=== PATIENT | male | born 1970 | race Caucasian/White ===

== ENCOUNTER 2021-03-15 17:57 | Observation (INO) | payer SELFPAY ==
--- NOTE | ~2021-03-15 | CT_ITS ---
EXAMINATION: CT soft tissue neck w con DATE: 03/15/2021 20:06 INDICATION: Throat swelling. Evaluate for peritonsillar abscess. TECHNIQUE: Computed tomography (CT) of the neck was performed with 75 mL Omnipaque-350 intravenous co ntrast. The dose-length product was 575.45 mGy-cm. Automated exposure control and iterative reconstruction technique were employed. COMPARISON: None FINDINGS: There is emphysema in the lung apices. No intracranial abnormality is identified. Mild short tid atherosclerosis. Mild cervical lymphadenopathy bilaterally, likely reactive. There is asymmetrica lly enlarged left palatine tonsil with heterogeneous enhancement. There is a focal 3 mm hypodensity, suspicious for early abscess. Mild effacement of the left lateral oropharynx. There is irregularity o f the oropharynx with air-filled dilation and irregularity of the right piriform sinus without discre te mass. Larynx and false/true vocal cords are unremarkable. Correlate for prior surgical history. Mi ld thoracic esophageal wall thickening, possibly due to underdistention or esophagitis. IMPRESSION: 1. Asymmetrically enlarged left palatine tonsil with possible focal early abscess measuring 3 mm. Mil d effacement of the left lateral oropharynx. 2: Bilateral cervical lymph nodes, likely reactive. Reviewed, dictated and finalized at location A. IMPRESSION: 1. Asymmetrically enlarged left palatine tonsil with possible focal early absce ss measuring 3 mm. Mild effacement of the left lateral oropharynx. 2: Bilateral cervical lymph nodes, likely reactive.
[2021-03-15 18:00] VITALS: BP 159/88; PULSE 105; RESP 16; TEMP 36.5; O2SAT 97
--- NOTE | 2021-03-15 18:26 | ED.GENADULT ---
HPI - General Adult General Chief complaint: Dental/Oral Stated complaint: DIFF SWALLOWING Time Seen by Provider: 03/15/21 18:20 Source: patient Mode of arrival: ambulatory Limitations: no limitations History of Present Illness HPI narrative: Patient is a 50-year-old male complaining of sore throat and difficulty swallowing x3 days. Patient states that his was just diagnosed with strep throat. Patient also states that the left side of his neck feels swollen. Patient denies any chest pain, shortness of breath, cough, fever or chills. Related Data Home Medications Medication Instructions Recorded Confirmed No Home Medications 03/15/21 03/15/21 Allergies Allergy/AdvReac Type Severity Reaction Status Date / Time No Known Allergies Allergy Verified 03/15/21 18:13 Review of Systems Review of Systems: All systems reviewed & are unremarkable except as noted in HPI and below Constitutional: Constitutional: Denies body ache(s), Denies chills, Denies excessive sweating, Denies fatigue, Denies fever(s), Denies headache(s), Denies lethargy, Denies malaise, Denies weakness and Denies weight loss Eyes: Eyes: Denies blurry vision, Denies change in vision and Denies loss of vision ENT: Denies dizziness, Denies ear discharge, Denies headache(s), Denies lip swelling, Denies epistaxis, Denies nasal congestion, Denies neck pain and Denies tongue swelling Cardiovascular: Cardiovascular: Denies chest pain, Denies chest pain at rest, Denies chest pain with activity, Denies diaphoresis, Denies rapid heart rate, Denies edema, Denies irregular heart rhythm, Denies lightheadedness, Denies palpitations, Denies dyspnea and Denies dyspnea on exertion Respiratory: Respiratory: Denies chest congestion, Denies cough, Denies hemoptysis, Denies dyspnea and Denies dyspnea on exertion Gastrointestinal: Gastrointestinal: Denies abdominal pain, Denies melena, Denies hematochezia, Denies diarrhea, Denies nausea, Denies vomiting and Denies hematemesis Musculoskeletal: Musculoskeletal: Denies abnormal gait, Denies deformity, Denies joint swelling, Denies limited range of motion, Denies neck pain and Denies numbness Neurologic: Denies Abnormal speech present, Denies abnormal gait, Denies confusion, Denies dizziness, Denies headache(s), Denies focal weakness, Denies loss of vision, Denies numbness, Denies Other visual disturbances, Denies Sensory deficit (Neuro) and Denies weakness Psychiatric: Psychiatric: Denies confusion, Denies depression, Denies auditory hallucinations, Denies homicidal ideation and Denies suicidal ideation Endocrine: Endocrine: Denies cold intolerance, Denies excessive sweating, Denies fatigue, Denies heat intolerance and Denies palpitations Hematologic/Lymphatic: Hematologic/Lymphatic: Denies easy bleeding and Denies easy bruising Allergic/Immunologic: Allergic/Immunologic: Denies lip swelling, Denies throat swelling and Denies tongue swelling PMFSH Comments Past medical history: None Family history: Unknown Social history: Positive for smoker no EtOH or drug use Exam Const: General: cooperative, healthy appearing, comfortable, no acute distress, well developed, alert and awake; No confusion Orientation/consciousness: oriented to person, oriented to place, oriented to time, patient oriented x3 and No confusion Limitations: no limitations HENMT: Head: normal to inspection, normocephalic and atraumatic Ears: hearing grossly normal bilaterally, TM normal on the right and TM normal on the left General nose exam: Normal external nose present, Normal nares present and No nasal discharge present Face and sinus: normal facial exam Mouth: Yes Normal oral and palatal mucosa present, Yes lip normal and Yes tongue normal Throat: posterior oropharynx normal, tonsils normal and uvula midline Other: Erythematous swollen posterior oropharyngeal area, lymphadenopathy bilaterally Eyes: General: appearance normal, both eyes and all related st
[2021-03-15 18:46] LABS: Basophils Absolute Auto 0.1 K/mm3 (0.0-0.1); Basophils Percent Auto 0.3 % (0.2-1.2); Eosinophils Absolute Auto 0.1 K/mm3 (0-0.3); Eosinophils Percent Auto 0.4 % (0-4.4); Hematocrit 48.3 % (42.0-52.0); Hemoglobin 16.6 g/dL (14.0-18.0); Immature Granulocyte Percent A 0.5 % (0-0.5); Lymphocytes Absolute Auto 1.95 K/mm3 (0.9-3.2); Lymphocytes Percent Auto 9.5 % (18.3-44.2); Mean Corpuscular HGB Conc 34.4 g/dl (32-36); Mean Corpuscular Hemoglobin 34.6 pg (26-34); Mean Corpuscular Volume 100.6 fl (80-100); Mean Platelet Volume 10.6 fl (7.4-10.4); Monocytes Absolute Auto 1.4 K/mm3 (0.1-0.6); Monocytes Percent Auto 6.6 % (2.6-8.5); Neutrophils Percent Auto 82.7 % (45.5-73.1); Platelet Count Result 209 k/mm3 (150-375); Red Cell Distribution Width 13.1 % (11.5-14.5); White Blood Count 20.6 K/mm3 (4.5-10.0)
--- NOTE | 2021-03-15 18:53 | PC.NURSE ---
Gagan Wren called regarding chemistry still not being received.
[2021-03-15 19:05] LABS: Anion Gap 12 mmol/L (8-16); Blood Urea Nitrogen 11 mg/dL (9-20); Calcium 9.7 mg/dL (8.4-10.2); Carbon Dioxide 24 mmol/L (22-30); Chloride 103 mmol/L (98-107); Estimated CRCL calculation 87 ml/min; Estimated Glomerular Filt Rate > 60; Glucose 121 mg/dL (65-110); Potassium 3.5 mmol/L (3.4-5.0); Sodium 139 mmol/L (137-145)
[2021-03-15 19:30] VITALS: BP 154/86; PULSE 93; RESP 16; O2SAT 98
[2021-03-15 20:11] VITALS: BP 150/98; PULSE 94; RESP 18; O2SAT 95
[2021-03-15 22:15] VITALS: BP 143/91; PULSE 100; RESP 18; O2SAT 96
[2021-03-15] MEDS: AMPICILLIN SULB 3 GM/NS 100 ML 3 GM/100 ML VIAL IVPB (22:18)
[2021-03-15] MEDS: LACTATED RINGERS 1,000 ML 125 ML IV CONT (22:18)
[2021-03-15 23:00] VITALS: BP 126/86; PULSE 88; RESP 14; TEMP 36.7; O2SAT 96
--- NOTE | 2021-03-15 23:02 | PM.IMHP ---
H&P: HPI History of Present Illness Date/Time: 03/15/21 23:02 Chief Complaint: Throat pain Narrative: This is a 50-year-old male with past medical history significant for tobacco dependence, alcohol dependence, no other significant past medical history presents to the emergency room with complaints of throat pain for the last 2 days fevers rigors and chills night sweats states that his had the same complaints at home. Today he was at work and it was getting increasingly worse for him to swallow his own secretions and decided to come to the emergency room. Patient states that this has been going on for the last today that he has been only drinking liquids and has not been able to eat any solid food but denies any nausea vomiting diarrhea or abdominal pain. Preliminary workup of has been significant for asymmetrically enlarged left palatine tonsil with possible focal early abscess measuring 3 mm, mild effacement of the left lateral oropharynx,bilateral cervical lymph nodes, likely reactive. CBC was significant for WBC count of 20,000. Patient has been admitted for further evaluation and treatment. Review of Systems Review of Systems: Pain swallowing throat pain chills night sweats Constitutional: Constitutional: Reports chills, Reports fever(s), Denies malaise, Reports night sweats and Denies weakness Eyes: Eyes: Denies change in vision, Denies diplopia and Denies itchy eyes ENT: Reports dysphagia, Denies hoarseness, Denies nasal congestion, Denies nasal discharge, Denies nasal obstruction, Reports odynophagia and Denies tongue swelling Cardiovascular: Cardiovascular: Denies irregular heart rhythm, Denies claudication, Denies leg edema, Denies lightheadedness, Denies radiating jaw, neck or arm pain, Denies palpitations, Denies dyspnea, Denies dyspnea on exertion and Denies orthopnea Respiratory: Respiratory: Denies cough, Denies excessive phlegm production, Denies pain with cough, Denies dyspnea and Denies wheezing Gastrointestinal: Gastrointestinal: Denies abdominal pain, Denies dyspepsia, Denies heartburn, Denies diarrhea, Denies nausea and Denies vomiting Genitourinary: Genitourinary: Denies dysuria and Denies urinary frequency Musculoskeletal: Musculoskeletal: Denies arthralgias and Denies joint swelling Integumentary/Breasts: Skin/Breast: Denies swelling, Denies rash and Denies sores Neurologic: Denies focal weakness and Denies Sensory deficit (Neuro) Psychiatric: Psychiatric: Reports as per HPI Endocrine: Endocrine: Reports as per HPI Hematologic/Lymphatic: Hematologic/Lymphatic: Reports as per HPI Allergic/Immunologic: Allergic/Immunologic: Reports as per HPI [facility] Social History Social History Smoking packs per day: 1 Smoking cigarettes per day: 20.0 Years smoked: 30 Smoking pack-years: 30.00 Smoking status: Current every day smoker Tobacco type: cigarettes Second hand tobacco smoke exposure: Yes Alcohol intake: current Drinks per week: 14 Substance use: never Spiritual care concerns: No Meds Home Medications and Allergies Home Medications Medication Instructions Recorded Confirmed Type No Home Medications 03/15/21 03/15/21 History Allergies Allergy/AdvReac Type Severity Reaction Status Date / Time No Known Allergies Allergy Verified 03/15/21 18:13 Vital Signs Vital Signs - 24 hr 03/15/21 18:00 03/15/21 19:30 03/15/21 20:11 Temperature 97.7 F Pulse Rate 105 H 93 94 Respiratory Rate 16 16 18 Blood Pressure 159/88 H 154/86 H 150/98 H Pulse Oximetry 97 98 95 03/15/21 22:15 Temperature Pulse Rate 100 Respiratory Rate 18 Blood Pressure 143/91 H Pulse Oximetry 96 Exam Narrative: Laying in gurney Const: General: cooperative, comfortable, no acute distress, well developed, alert, awake and other (Well-appearing) Nutritional Appearance: average body habitus Orientation/consciousness: patient oriented x3 HENMT: Head: normal to inspection, nor
[2021-03-15 23:40] VITALS: BP 142/90; PULSE 101; RESP 20; TEMP 36.2; O2SAT 97; BMI 25.3
--- NOTE | 2021-03-16 00:32 | ADMGEN ---
This patient, Dusty Centeno, was admitted to [facility] Surg Room 330-02. Patient/family oriented to hospital policies and general routines including ID bracelet, bed and alarms, visiting hours, pain management, procedures, bathroom and other care routines, personal items, smoking policy, room service/diet, and visiting hours. Information on how to activate the Rapid Response Team has been discussed. Patient/Family are encouraged to report perceived risks to care and to ask questions if they do not understand what they are told or what they should do.
[2021-03-16] MEDS: LACTATED RINGERS 1,000 ML 125 ML IV CONT (05:32)
[2021-03-16] MEDS: AMPICILLIN SULB 3 GM/NS 100 ML 3 GM/100 ML VIAL IVPB ×3 (05:32→18:01)
[2021-03-16 05:42] VITALS: BP 130/81; PULSE 98; RESP 18; TEMP 36.4; O2SAT 97
[2021-03-16 10:18] LABS: Basophils Percent Auto 0.2 % (0.2-1.2); Eosinophils Percent Auto 0.2 % (0-4.4); Hematocrit 49.6 % (42.0-52.0); Hemoglobin 16.5 g/dL (14.0-18.0); Immature Granulocyte Absolute 0.12 K/mm3 (0.00-0.031); Immature Granulocyte Percent A 0.6 % (0-0.5); Lymphocytes Absolute Auto 2.57 K/mm3 (0.9-3.2); Lymphocytes Percent Auto 13.6 % (18.3-44.2); Mean Corpuscular HGB Conc 33.3 g/dl (32-36); Mean Corpuscular Hemoglobin 34.2 pg (26-34); Mean Corpuscular Volume 102.9 fl (80-100); Mean Platelet Volume 10.8 fl (7.4-10.4); Monocytes Absolute Auto 1.2 K/mm3 (0.1-0.6); Monocytes Percent Auto 6.6 % (2.6-8.5); Neutrophils Absolute Auto 14.9 K/mm3 (1.3-6.7); Neutrophils Percent Auto 78.8 % (45.5-73.1); Platelet Count Result 207 k/mm3 (150-375); Red Blood Count 4.82 M/mm3 (4.6-6.20); Red Cell Distribution Width 13.1 % (11.5-14.5); White Blood Count 18.9 K/mm3 (4.5-10.0)
[2021-03-16 10:56] LABS: Anion Gap 13 mmol/L (8-16); Blood Urea Nitrogen 14 mg/dL (9-20); Calcium 9.4 mg/dL (8.4-10.2); Carbon Dioxide 22 mmol/L (22-30); Chloride 105 mmol/L (98-107); Estimated CRCL calculation 97 ml/min; Estimated Glomerular Filt Rate > 60; Glucose 89 mg/dL (65-110); Potassium 4.1 mmol/L (3.4-5.0); Sodium 140 mmol/L (137-145)
--- NOTE | 2021-03-16 13:18 | PM.IMPN ---
Progress Note: A&P Assessment and Plan (1) Peritonsillar abscess: Code(s): J36 - Peritonsillar abscess Status: Acute Assessment and Plan: Soft tissue neck CT shows asymmetrically enlarged left palatine tonsil with possible focal early abscess measuring 3 mm with surrounding lymphadenopathy. Appreciate ENT consultation IV dexamethasone x3 doses IV Unasyn Planning for I&D this evening per ENT Supportive care. Analgesics available as needed Continue IV fluids Clear liquid diet as tolerated. He is not able to tolerate liquids at this time. Marked leukocytosis mildly improving (2) Tobacco dependence: Code(s): F17.200 - Nicotine dependence, unspecified, uncomplicated Status: Acute Assessment and Plan: He smokes approximately 1 pack day Continue to reinforce tobacco cessation Subjective Date/time seen: 03/16/21 13:18 Interval history: Date of service: 03/16/2021 Dusty Centeno is a 50-year-old male with a history of tobacco abuse who is seen in follow-up for peritonsillar abscess. He feels miserable today. He complains of pain going from his left ear down to his neck and over to his chin. He had severe odynophagia when attempting to swallow liquids and he cannot manage his secretions. He has been having to spit out secretions for the past 2 days. He reports muffled speech. He denies nausea, vomiting, fever, or chills. He does endorse sweats. He feels lightheaded upon standing. He has a throbbing diffuse headache. Denies shortness breath, cough, or chest pain. No abdominal pain. No urinary symptoms. Review of Systems Review of Systems: All systems reviewed & are unremarkable except as noted in HPI and below Exam Narrative: Mr. Centeno is a well-nourished, well-appearing 50-year-old male who is lying supine in bed. He appears to be uncomfortable but is in NARD. Neuro: awake, alert and oriented x4, speech muffled, no focal neuro deficits noted HEENMT: normocephalic, atraumatic, EOMI, sclerae anicteric, moist oral mucosa, tongue midline Neck: Left-sided cervical and submandibular lymphadenopathy Respiratory: clear to auscultation bilaterally, nonlabored breathing Cardio: regular rate, regular rhythm with S1-S2 Abdomen: nondistended, normoactive bowel sounds, soft, nontender to palpation Extremities: no edema, erythema, or tenderness to palpation, DP pulses 2+ bilaterally Skin: no rashes or lesions, warm and dry Psych: appropriate mood and affect, judgment and insight intact Objective Data Vital Signs Vital Signs: Vital Signs - 24 hr 03/15/21 18:00 03/15/21 19:30 03/15/21 20:11 Temperature 97.7 F Pulse Rate 105 H 93 94 Respiratory Rate 16 16 18 Blood Pressure 159/88 H 154/86 H 150/98 H Pulse Oximetry 97 98 95 03/15/21 22:15 03/15/21 23:00 03/15/21 23:40 Temperature 98.0 F 97.1 F L Pulse Rate 100 88 101 H Respiratory Rate 18 14 20 Blood Pressure 143/91 H 126/86 142/90 H Pulse Oximetry 96 96 97 03/16/21 05:42 Temperature 97.6 F Pulse Rate 98 Respiratory Rate 18 Blood Pressure 130/81 Pulse Oximetry 97 Intake/Output Intake/Output: Intake & Output 03/13/21 03/14/21 03/15/21 03/16/21 23:59 23:59 23:59 23:59 Intake Total 100 1200 Balance 100 1200 Meds/Results Medications: Active Medications Generic Name Dose Route Start Last Admin Trade Name Freq PRN Reason Stop Dose Admin Dexamethasone Sodium Phosphate 8 mg 03/16/21 10:00 03/16/21 11:43 Dexamethasone Sod Phos Inj 10 Mg/Ml 1 Ml Vial IV PUSH 03/17/21 02:01 8 mg Q8H AMBER Administration Enoxaparin Sodium 40 mg 03/17/21 09:00 Enoxaparin 40 Mg/0.4 Ml Syringe SUB-Q DAILY AMBER Lactated Ringer's 1,000 mls @ 75 mls/hr 03/15/21 22:10 03/16/21 12:29 Lr - Lactated Ringers Iv IV CONT 75 mls/hr .[id number] AMBER Infusion Ampicillin Sodium/Sulbactam Sodium 3 gm in 100 mls @ 200 mls/hr 03/16/21 05:00 03/16/21 12:29 Unasyn 3 Gm/Ns 100 Ml IVPB
[2021-03-16 14:00] VITALS: BP 133/77; PULSE 91; RESP 16; TEMP 36.6; O2SAT 98
--- NOTE | 2021-03-16 17:20 | WPDCN ---
Assessment and Plan Assessment and plan (1) Peritonsillar abscess: Code(s): J36 - Peritonsillar abscess Status: Acute Assessment and Plan: Recommend completing the 3 doses of 8mg of decadron. Continue iv antibiotics while inpatient. Ok for diet. Please trend wbc daily. If the patient continues to improve and can tolerate a diet would recommend discharge on 10 days of an oral form of his iv antibiotic. 875/125 bid of augmentin or 300mg tid of clindamycin. 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 Reports feeling vastly improved in the past 3 hours. Able to speak and swallow. Trismus resolved. ENT consulted for further evaluation and treatment. Review of Systems ENT: Reports system reviewed and no additional complaints, except as documented, Reports neck pain and Reports throat swelling PMFSH Social History Social History Smoking packs per day: 1 Smoking cigarettes per day: 20.0 Years smoked: 30 Smoking pack-years: 30.00 Smoking status: Current every day smoker Tobacco type: cigarettes Second hand tobacco smoke exposure: Yes Alcohol intake: current Drinks per week: 14 Substance use: never Spiritual care concerns: No Meds Home Medications and Allergies Home Medications Medication Instructions Recorded Confirmed Type No Home Medications 03/15/21 03/15/21 History Allergies Allergy/AdvReac Type Severity Reaction Status Date / Time No Known Allergies Allergy Verified 03/15/21 18:13 Vital Signs Vital Signs - 24 hr 03/15/21 18:00 03/15/21 19:30 03/15/21 20:11 Temperature 36.5 C Pulse Rate 105 H 93 94 Respiratory Rate 16 16 18 Blood Pressure 159/88 H 154/86 H 150/98 H Pulse Oximetry 97 98 95 03/15/21 22:15 03/15/21 23:00 03/15/21 23:40 Temperature 36.7 C 36.2 C L Pulse Rate 100 88 101 H Respiratory Rate 18 14 20 Blood Pressure 143/91 H 126/86 142/90 H Pulse Oximetry 96 96 97 03/16/21 05:42 Temperature 36.4 C Pulse Rate 98 Respiratory Rate 18 Blood Pressure 130/81 Pulse Oximetry 97 Exam HENMT: Other: Trismus largely resolved. Mild left sided peritonsillar/soft palate edema. Exudates bilaterally. Results Labs CBC & Chem 7: 03/16/21 09:31 03/16/21 09:31 Labs: Short CBC 03/15/21 03/16/21 Range/Units 18:32 09:31 WBC 20.6 H 18.9 H (4.5-10.0) K/mm3 Hgb 16.6 16.5 (14.0-18.0) g/dL Hct 48.3 49.6 (42.0-52.0) % Plt Count 209 207 (150-375) k/mm3 BMP 03/15/21 03/16/21 18:32 09:31 Sodium 139 140 Potassium 3.5 4.1 Chloride 103 105 Carbon Dioxide 24 22 BUN 11 14 Creatinine 0.90 0.80 Glucose 121 H 89 Calcium 9.7 9.4
[2021-03-16 21:26] VITALS: O2SAT 98
[2021-03-16 21:39] VITALS: BP 131/70; PULSE 76; RESP 18; TEMP 36.6; O2SAT 98
[2021-03-17] MEDS: AMPICILLIN SULB 3 GM/NS 100 ML 3 GM/100 ML VIAL IVPB ×3 (01:00→11:17)
[2021-03-17 05:47] VITALS: BP 141/94; PULSE 74; RESP 18; TEMP 36.2; O2SAT 97
[2021-03-17 06:17] LABS: Basophils Percent Auto 0.1 % (0.2-1.2); Eosinophils Percent Auto 0.1 % (0-4.4); Hematocrit 47.3 % (42.0-52.0); Immature Granulocyte Absolute 0.12 K/mm3 (0.00-0.031); Immature Granulocyte Percent A 0.7 % (0-0.5); Lymphocytes Absolute Auto 1.13 K/mm3 (0.9-3.2); Lymphocytes Percent Auto 6.4 % (18.3-44.2); Mean Corpuscular HGB Conc 33.8 g/dl (32-36); Mean Corpuscular Hemoglobin 34.5 pg (26-34); Mean Corpuscular Volume 101.9 fl (80-100); Mean Platelet Volume 10.9 fl (7.4-10.4); Monocytes Absolute Auto 0.4 K/mm3 (0.1-0.6); Monocytes Percent Auto 2.4 % (2.6-8.5); Neutrophils Percent Auto 90.3 % (45.5-73.1); Platelet Count Result 194 k/mm3 (150-375); Red Blood Count 4.64 M/mm3 (4.6-6.20); Red Cell Distribution Width 12.7 % (11.5-14.5); White Blood Count 17.8 K/mm3 (4.5-10.0)
[2021-03-17 06:30] LABS: Anion Gap 9 mmol/L (8-16); Blood Urea Nitrogen 13 mg/dL (9-20); CRP 4.6 mg/dL (<1.0); Calcium 9.3 mg/dL (8.4-10.2); Carbon Dioxide 23 mmol/L (22-30); Chloride 104 mmol/L (98-107); Estimated CRCL calculation 110 ml/min; Estimated Glomerular Filt Rate > 60; Glucose 129 mg/dL (65-110); Potassium 4.4 mmol/L (3.4-5.0); Sodium 136 mmol/L (137-145)
[2021-03-17] MEDS: ENOXAPARIN 40 MG/0.4 ML SYRINGE SUB-Q (08:27)
[2021-03-17] MEDS: LACTATED RINGERS 1,000 ML 75 ML IV CONT (08:32)
--- NOTE | 2021-03-17 13:50 | PM.DS ---
DS: Admitting Diagnosis Discharge Date 03/17/2020 Admitting Diagnosis Peritonsillar abscess DS: Discharge Diagnosis Discharge Diagnosis (1) Peritonsillar abscess: Code(s): J36 - Peritonsillar abscess Status: Acute Assessment and Plan: Soft tissue neck CT showed asymmetrically enlarged left palatine tonsil with possible focal early abscess measuring 3 mm with surrounding lymphadenopathy. He was seen in consultation by ENT Received IV dexamethasone x3 doses Started on IV Unasyn. Continue p.o. Augmentin x14 days He had symptomatic improvement and was able to tolerate a soft/bite sized diet He did have improvement in leukocytosis and anticipate normalization following outpatient antibiotic treatment Follow-up with ENT should any issues arise He does have a history of peritonsillar abscess and should follow-up when he returns back home to [place] to consider tonsillectomy (2) Streptococcal pharyngitis: Code(s): J02.0 - Streptococcal pharyngitis Status: Acute Assessment and Plan: Group A Strep isolated from throat culture. Continue Augmentin as above (3) Tobacco dependence: Code(s): F17.200 - Nicotine dependence, unspecified, uncomplicated Status: Acute Assessment and Plan: He smokes approximately 1 pack day. He was educated on smoking cessation and verbalized understanding. DS: Summary Hospital Course Hospital Course: Date of admission: 03/15/2021 Date of discharge: 03/17/2021 Dusty Centeno is a 50-year-old male with a history of tobacco abuse who presented to the emergency department on 03/15/2021 with complaints of sore throat and difficulty swallowing for 3 days. He had recently been diagnosed with strep throat, though it is unclear if he had been started on treatment for such at time of presentation. On arrival to the ED, his vital signs were stable with the exception of very mild tachycardia[place] [address] with additional CBC and BMP unremarkable, and soft tissue neck CT showed asymmetrically enlarged left palatine tonsil with possible early abscess. He was admitted to the hospitalist service for further evaluation and management was seen in consultation by ENT. Please see above for further details. He did have symptomatic improvement following IV antibiotics, steroids, and supportive care. He was able to manage his secretions and was able to advance to a soft/bite size diet. He began feeling much better and was very eager for discharge. 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 He will be in the area for 3-4 weeks, therefore he was instructed he can follow-up with ENT, Dr. Fu should any issues arise. He was also given the contact information of the on-call primary care provider for any additional concerns. Given his overall improvement, he was determined to no longer require inpatient care and was felt to be stable for discharge. I spoke with Dr. Fu who was in agreement with plans for discharge. I discussed with the patient worrisome signs and symptoms for which to return and he was educated on his medications. He was discharged in hemodynamically stable condition on 03/17/2021. Status at Discharge Functional status at discharge: independent ambulation Overall status at discharge: patient is back to baseline Time Spent with Patient Time attestation: Total time spent providing and/or coordinating discharge services: 45 minutes Time spent: Greater than 30 minutes Exam Narrative: Mr. Centeno is a well-nourished, well-appearing 50-year-old male who is lying supine in bed. He appears comfortable and is in NARD. Neuro: awake, alert and oriented x4, speech muffled, no focal neuro deficits noted HEENMT: normocephalic, atraumatic, EOMI, sclerae anicteric, moist oral mucosa, tongue midline, no oropharyngeal erythema Neck: Improved cervical lymphadenopathy Respiratory: clear to auscultation bi
== END 2021-03-17 13:58 | disposition home or self-care (01) ==
LOC: ANHED 22:06 → ANH3MEDSUR 23:35
PROVIDERS: Physician Assistant; Admitting Provider Internal Medicine; Emergency Provider Emergency Medicine; Visit Provider Internal Medicine
DX: J36 Peritonsillar abscess (principal); F17.210 Nicotine dependence, cigarettes, uncomplicated; F10.20 Alcohol dependence, uncomplicated
CPT/HCPCS: 36415; 70491; 80048; 85025; 86140; 87081; 87147; 87880; 96361; 96365; 96366; 96372; 96375; 96376; 99285; G0378; G0379; J0295; J1100; J1650; J7120; Q9967